=== PATIENT | female | born 1980 | race African-American/Black ===

== ENCOUNTER 2017-01-18 20:14 | Emergency (ER) | payer OTHER ==
[~2017-01-18] VITALS: Ht 165.1 cm; Wt 104.5 kg
[~2017-01-18 20:14] MED LIST: PRENATAL TABLE1 EAC3 PO; ZANTAC150 MG PO
[2017-01-18 22:57] LABS: HEMATOCRIT 36.5 % (36.0-46.0); MCH 25.9 PG (29.0-34.0); MCHC 32.1 G/DL (30.0-36.0); MCV 80.8 FL (83-99); MEAN PLAT.VOLUME 9.5 uM^3 (9.5-12.4); PLATELET COUNT 332 K/uL (156-360); RBC DIS.WIDTH-CV 20.5 % (11.8-14.6); RBC DIS.WIDTH-SD 59.3 % (39-53); RED BLOOD COUNT 4.52 M/uL (3.80-5.20); WHITE BLOOD COUNT 7.4 K/uL (4.1-10.2)
[2017-01-18 23:07] LABS: CHLORIDE 108 mEq/L (99-109); POTASSIUM 3.7 mEq/L (3.7-5.4); SODIUM 138 mEq/L (136-147)
[2017-01-18 23:09] LABS: GLUCOSE 102 mg/dL (70-99)
[2017-01-18 23:10] LABS: ANION GAP 11 MEQ/L (2-14)
[2017-01-18 23:11] LABS: TOTAL BILIRUBIN 0.2 mg/dL (0.0-1.0)
[2017-01-18 23:12] LABS: ALKALINE PHOSPHATASE 64 IU/L (3-129)
[2017-01-18 23:13] LABS: GFR ESTIMATE (CALCULATED) > 59 mL/min/
[2017-01-18 23:14] LABS: UREA NITROGEN (BUN) 7 mg/dL (9-23)
[2017-01-18 23:17] LABS: ADD MIUA? YES; BILIRUBIN NEGATIVE; BLOOD NEGATIVE; COLOR YELLOW ((YELLOW)); GLUCOSE (STRIP) NEGATIVE; KETONES 20; LEUKOCYTES MODERATE; NITRITE NEGATIVE; PROTEIN (STRIP) 30; SPECIFIC GRAVITY 1.032 (1.000-1.030); UROBILINOGEN 0.2 MG/DL (0.2-1.0)
[2017-01-18 23:23] LABS: BACTERIA NONE SEEN /HPF; EPITHELIAL CELLS 1+ /HPF; MUCUS 2+ /LPF; RED BLOOD CELLS 0-5 /HPF (0-5); UCUL ADDED? NO; WHITE BLOOD CELLS 0-5 /HPF (0-5)
[2017-01-18 23:45] LABS: QUANTITATIVE HCG 43078.5 MIU/ML
[2017-01-19 01:06] VITALS: BP 133/60
== END 2017-01-19 01:08 | disposition home or self-care (01) ==
LOC: EME 20:14
PROVIDERS: Physician Assistant
DX: R10.30 Lower abdominal pain, unspecified (principal); M54.9 Dorsalgia, unspecified; Z33.1 Pregnant state, incidental
CPT/HCPCS: 76801; 80053; 81003; 84702; 85027; 99281; 99284